=== PATIENT | female | born 1960 | race Caucasian/White ===

== ENCOUNTER → 2018-06-03 | Outpatient (CLI) | payer OTHER ==
--- NOTE | 2018-06-03 11:08 | PCVCIMAG ---
APPROVED REPORT Study performed: 06/03/2018 09:36:33 Exam: Stress Echocardiogram Indication: Chest pain , Dyspnea, fatigue Patient Location: Echo lab Stress Nurse: Praveena Shanks RN Room #: 2 Status: routine Ht: 5 ft 2 in HR: 68 bpm BP: 126/80 mmHg Rhythm: NSR Medical History Previous Cardiac Procedures: none Pretest Chest Pain Characteristics: No chest pain Exercise History: Physically active Procedure The patient underwent an Exercise Stress Test using the Hang Protocol. Blood pressure, heart rate, and EKG were monitored. An Echocardiogram was performed by install technician in four stages in quad fashion. At peak stress, four selected images were obtained and placed side by side with resting images for comparison. Stress Test Details Stress Test: Exercise stress testing was performed using a Hang protocol. HR Resting HR: 68 bpmMax Heart Rate (APMHR): 160 bpm Max HR Achieved: 137 bpmTarget HR (85% APMHR): 136 bpm % of APMHR: 85 Recovery HR: 65 bpm HR response to stress: Normal HR response to stress BP Resting BP: 126/80 mmHg Max BP: 138/86 mmHg Recovery BP: 108/72 mmHg ECG Resting ECG: Sinus Rhythm Stress ECG: Sinus Rhythm ST Change: Non-ischemic Arrhythmia: None Recovery ECG: Sinus Rhythm Recovery ST Change: Non-ischemic Recovery Arrhythmia: None Clinical Reason for Termination: Maximal effort Stress Symptoms: fatigue Exercise duration: 10 min 31 sec Highest Stage Achieved: Stage 4: 4.2 mph at 16% grade. Exercise capacity: 11.7 METs Overall Exercise Capacity for Age: Good Scale: Active Angina Score: None No complications. Stress ECG Conclusion The patient exercised according to the HANG protocol for 10:31 mins; achieving a work level of 11.7 METS. The resting heart rate of 68 bpm chavez to a maximum heart rate of 137 bpm. This value represent 85% of the maximal, age-predicted heart rate. The resting blood pressure of 126/80 mmHg, chavez to a maximum blood pressure of 138/86 mmHg. The exercise test was stopped due to fatigue. Pre-Stress Echo The resting Echocardiogram showed normal left ventricular contractility with an estimated Ejection Fraction of about 55-60%. Normal wall motion in all segments on baseline images. Post-Stress Echo The stress Echocardiogram showed normal left ventricular contractility with an estimated Ejection Fraction of about 65-70%. Normal augmentation of wall motion in all segments on post stress images. Clinical No clinical or ECG evidence for ischemia. Conclusion Clinical Response: Non-ischemic Exercise Capacity: Superior Stress ECG Response: Non-ischemic Stress Echo Images: Non-ischemic No clinical, EKG or echocardiographic evidence for ischemia. No echocardiographic evidence for exercise induced ischemia. Normal stress echocardiogram with maximal exercise stress. <Conclusion> No clinical, EKG or echocardiographic evidence for ischemia. No echocardiographic evidence for exercise induced ischemia. Normal stress echocardiogram with maximal exercise stress.
== END | disposition home or self-care (01) ==
LOC: PCVCIMAG 13:17
PROVIDERS: ATTEND Internal Medicine Cardiovascular Disease
DX: I71.4 Abdominal aortic aneurysm, without rupture (principal); R06.09 Other forms of dyspnea
CPT/HCPCS: 93325; 93351